=== PATIENT | female | born 1955 | race Asian ===

== ENCOUNTER 2021-07-26 10:30 | Outpatient (RCR) | payer OTHER ==
[~2021-07-26 10:30] MED LIST: ALBUTEROL0.09 MG/A1 IH; ATENOLOL50 MG PO; LOVAZA1 GM PO; ONE DAILY1 TA2 PO; PHOS LO PO; PREMARIN .3MG0.3 MG PO; SINGULAIR10 MG PO; ZANTAC 7575 MG PO; ZYRTEC5 MG PO; methimazole
== END 2021-07-28 | disposition home or self-care (01) ==
LOC: WSPT
DX: M54.16 Radiculopathy, lumbar region (principal)

== ENCOUNTER 2021-08-16 10:30 | Outpatient (RCR) | payer OTHER | END 2021-08-28 | disposition still patient (30) | LOC: WSC | DX: M54.16 Radiculopathy, lumbar region (principal); R93.89 Abnormal findings on diagnostic imaging of other specified body structures ==

== ENCOUNTER 2021-09-11 09:16 | Outpatient (RCR) | payer OTHER | END 2021-09-11 12:00 | disposition home or self-care (01) | LOC: WSC 09:16 | DX: M54.16 Radiculopathy, lumbar region (principal) ==